=== PATIENT | male | born 1970 | race Caucasian/White ===

== ENCOUNTER 2022-05-27 12:03 | Emergency (ER) | payer BC, SELFPAY ==
[2022-05-27] VITALS (15 sets, daily range): BP systolic 111–151; BP diastolic 79–112; PULSE 12–170; RESP 13–166; TEMP 36.6; O2SAT 92–98
--- NOTE | 2022-05-27 12:24 | ED_ITS ---
HPI - General Adult General Chief complaint: Chest Pain Stated complaint: Chest Pain Time Seen by Provider: 05/27/22 12:16 History of Present Illness HPI narrative: This 51-year-old male comes in reporting generalized malaise with some chest pain. He states that his heart became rapid yesterday afternoon. He did have a triple bypass surgery 2 months ago. He arrives with tachycardia and a rate around 160 beats per minute. Related Data Previous Rx's Medication Instructions Recorded apixaban 5 mg (74 tabs) tablets in See Rx Instructions PO .COMPLEX 05/27/22 a dose pack (Eliquis DVT-PE Treat #74 ea 30D Start) Allergies Allergy/AdvReac Type Severity Reaction Status Date / Time No Known Drug Allergies Allergy Verified 05/27/22 12:23 Review of Systems Status of ROS: Reports: 10 or more systems reviewed and unremarkable except as noted in History and below Narrative: Constitutional: No fevers, no weight gain or loss. Eyes: No discharge. No vision changes. HENT: No congestion, no sore throat, no ear pain. Cardiovascular: Rapid heart rate with associated chest discomfort. Respiratory: No shortness of breath, no wheezes, no cough. Gastrointestinal: No abdominal pain, no vomiting, no diarrhea. Genitourinary: No dysuria, no hematuria. Musculoskeletal: Normal range of motion. Skin: No rashes, no pruritis. Neurological: No dizziness, weakness, sensory change, speech change. Endo/Heme/Allergies: No bruising or bleeding. No polydipsia. Pysch: no suicidality, no anxiety, no insomnia. All other systems reviewed and are negative. PFSH PFSH Social History Smoking Status: Never smoker Do you use any of these nicotine containing products: None Second hand tobacco smoke exposure: No How often do you have a drink containing alcohol: 2-3 times a week How many standard drinks containing alcohol do you have on a typical day: 3 or 4 How often do you have six or more drinks on one occasion: Never AUDIT-C Alcohol total score: 4 Non-prescribed substance use: denies use service: No Exam Narrative: Exam Narrative: Constitutional: Well-developed, well-nourished, no acute distress. HEENT: Normocephalic, atraumatic. Neck: Normal range of motion. Nontender. Supple. Heart: Regular. No murmurs. Tachycardia. Intact distal pulses. Lungs: Clear to auscultation. No chest discomfort. No wheezes, rhonchi, or rales. Abdomen: Normal bowel sounds. Nontender. No rebound tenderness. Genitalia: Deferred. Back: No midline tenderness. Normal range of motion. Extremities: Normal range of motion. No injury. Skin: Intact. No rash. Warm. No erythema or pallor. Neurologic: No altered sensation. No weakness. Alert and oriented. Psychiatric: No suicidality. No anxiety or depression. No insomnia. Nursing notes and vitals signs are reviewed. Const: Vital Signs, click to edit/add: Vital Signs - 24 hr 05/27/22 12:18 05/27/22 12:30 05/27/22 12:45 Temperature 98 F Pulse Rate [Apical ] 163 H 162 H 166 H Respiratory Rate 18 20 16 Blood Pressure [Ri ght Upper Arm] 140/110 H 151/104 H 112/94 H Pulse Oximetry 95 95 95 05/27/22 13:00 05/27/22 13:15 05/27/22 13:30 Temperature Pulse Rate [Apical ] 166 H 167 H 109 H Respiratory Rate 16 19 15 Blood Pressure [Ri ght Upper Arm] 119/101 H 133/93 H 111/85 Pulse Oximetry 95 95 94 05/27/22 13:45 05/27/22 14:00 05/27/22 14:15 Temperature Pulse Rate [Apical ] 165 H 166 H 169 H Respiratory Rate 13 21 15 Blood Pressure [Ri ght Upper Arm] 117/100 H 122/92 H 132/95 H Pulse Oximetry 95 92 95 05/27/22 14:30 05/27/22 14:45 05/27/22 15:00 Temperature Pulse Rate [Apical ] 170 H 164 H 12 L Respiratory Rate 20 19 166 H Blood Pressure [Ri ght Upper Arm] 129/97 H 129/98 H 122/112 H Pulse Oximetry 94 97 98 05/27/22 15:05 Temperature Pulse Rate [Apical ] 95 Respiratory Rate 18 Blood Pressure [Ri ght Upper Arm] 126/79 Pulse Oximetry 97 Course Vital Signs Vital signs: Initial Vital Signs Temperature 98 F 05/27/22 12:18 Temperature Source Oral 05/27/22 12:18 Pulse Rate 163 H 05/27/22 12:18 Pulse Rhythm 05/27/22 12:18 Respiratory Rate 18 05/27/22 12:18 Blood Pressure 140/110 H 05/27/22 12:18 Blood Pressure Mean 120 05/27/22 12:18 Blood Pressure Position Sitting 05/27/22 12:18 Pulse Oximetry 95 05/27/22 12:18 Oxygen Delivery Method 05/27/22 12:18 Vital Signs Temperature 98 F 05/27/22 12:18 Pulse Rate 163 H 05/27/22 12:18 Respiratory Rate 18 05/27/22 12:18 Blood Pressure 140/110 H 05/27/22 12:18 Pulse Oximetry 95 05/27/22 12:18 Temperature 98 F 05/27/22 12:18 Pulse Rate 95 05/27/22 15:05 Respiratory Rate 18 05/27/22 15:05 Blood Pressure 126/79 05/27/22 15:05 Pulse Oximetry 97 05/27/22 15:05 Medical Decision Making MDM Narrative Medical decision making narrative: This patient comes in with heart rate around 160 beats per minute. It is unclear from the monitor and EKG whether this is super ventricular tachycardia or atrial fibrillation with rapid ventricular response. An IV was established where the patient received 6 mg of adenosine. A loom repairer did show that this medicine did reach is Heart and have an affect to slow his heart but he immediately resumed back into tachycardia at the medicine cleared. He received 20 mg of diltiazem then which brought his heart rate down into the 110s. He states that this helped him feel better. Before long his heart was again going around 160 beats per minute. This is an atrial flutter with rapid ventricular response. Lab results returned with normal troponin, electrolytes, and magnesium levels. He did not have any food today and had a cup of coffee about 5 hours prior to arrival. He is a candidate for cardioversion. Anesthesia was contacted and was able to come and help with sedation. After acquiring informed consent the patient received 120 mg of propofol. This provided adequate sedation for cardioversion. Synchronized cardioversion was successfully completed using 1 dose of 150 joules of energy. He returned to normal sinus rhythm and rate. The patient received a dose of Eliquis 10 mg. A prescription for a starter pack is provided. Patient is instructed to continue this medication through the course of the next month and follow-up with the primary physician. Lab Data Labs: Lab Results 05/27/22 05/27/22 05/27/22 Range/Units 12:30 12:31 12:31 WBC 13.11 H (4.50-11.00) K/uL RBC 4.99 (4.30-5.90) m/uL Hgb 13.2 L (13.5-17.5) gm/dL Hct 40.7 (37.0-53.0) % MCV 82 (80-100) fL MCH 27 (26-34) pg MCHC 32 (32-36) gm/dL RDW Coeff of Segundo 13.5 (11.5-15.5) % Plt Count 291 (140-440) K/uL Neut % (Auto) 77.3 H (42.0-72.0) % Lymph % (Auto) 9.8 L (20-44) % [facility] % (Auto) 11.9 H (0.0-11.0) % Eos % (Auto) 0.2 (0.0-7.0) % Baso % (Auto) 0.4 (0.0-3.0) % Neut # (Auto) 10.10 H (1.7-7.0) K/uL Lymph # (Auto) 1.30 (0.90-2.90) K/uL [facility] # (Auto) 1.60 H (0.00-0.90) K/UL Eos # (Auto) 0.00 (0.00-0.50) K/uL Baso # (Auto) 0.10 (0.00-0.30) K/uL Abs Immat Gran (auto) 0.05 (0.00-0.30) K/uL Sodium 134 L (135-149) mmol/L Potassium 3.9 (3.6-5.1) mmol/L Chloride 101 (96-114) mmol/L Carbon Dioxide 26 (20-32) mmol/L BUN 17 (7-30) mg/dL Creatinine 1.2 (0.5-1.5) mg/dL Estimated GFR 73 ml/min Glucose 132 H (60-115) mg/dL Calcium 9.6 (8.4-10.6) mg/dL Magnesium 1.6 (1.5-2.6) mg/dL POC Troponin I 0.01 (0.01-0.04) ng/ml ECG Data Attestation: I personally reviewed and interpreted this ECG as follows: Interpretation: Supraventricular tachycardia, rate 162 beats per minute. There are no specific ST or T-wave abnormalities. Repeat EKG after cardioversion shows normal sinus rhythm, rate around 80 beats per minute, and no ST or T-wave abnormalities. Discharge Plan Discharge Clinical Impression: Atrial flutter with rapid ventricular response Patient Disposition: Home, Self-Care Condition: Improved Instructions: Atrial Flutter (ED) Additional Instructions: Take Eliquis as prescribed. Follow up with primary physician or events administrative assistant in the next 1-2 weeks. Return if recurrent symptoms happen. Prescriptions: New Eliquis DVT-PE Treat 30D Start 5 mg (74 tabs) tablets,dose pack See Rx Instructions PO .COMPLEX Qty: 74 0RF Rx Instructions: orally per package directions Follow Up/Referrals: Lewis Deluna MD [Primary Care Provider] - Stand Alone Forms: [employer] Info Instructions
[2022-05-27 12:36] LABS: Basophils Percent Auto 0.4 % (0.0-3.0); Eosinophils Percent Auto 0.2 % (0.0-7.0); Hematocrit 40.7 % (37.0-53.0); Hemoglobin* 13.2 gm/dL (13.5-17.5); Immature Granulocytes Abs Auto 0.05 K/uL (0.00-0.30); Lymphocytes Percent Auto 9.8 % (20-44); Mean Corpuscular HGB Conc 32 gm/dL (32-36); Mean Corpuscular Hemoglobin 27 pg (26-34); Mean Corpuscular Volume 82 fL (80-100); Monocytes Percent Auto 11.9 % (0.0-11.0); Neutrophils Percent Auto 77.3 % (42.0-72.0); Platelet Count* 291 K/uL (140-440); RDW Coefficient of Variation % 13.5 % (11.5-15.5); Red Blood Count 4.99 m/uL (4.30-5.90); White Blood Count* 13.11 K/uL (4.50-11.00)
[2022-05-27 12:54] LABS: Chloride* 101 mmol/L (96-114); Potassium* 3.9 mmol/L (3.6-5.1); Slide Review Reflex No; Sodium* 134 mmol/L (135-149)
[2022-05-27 12:57] LABS: Blood Urea Nitrogen* 17 mg/dL (7-30); Carbon Dioxide* 26 mmol/L (20-32); Creatinine* 1.2 mg/dL (0.5-1.5); Estimated Glomerular Filt Rate 73 ml/min
[2022-05-27 12:58] LABS: Calcium* 9.6 mg/dL (8.4-10.6); Glucose* 132 mg/dL (60-115); Magnesium* 1.6 mg/dL (1.5-2.6)
[2022-05-27] MEDS: ADENOSINE 6 MG/2ML INJ IVP (13:00)
[2022-05-27 13:13] LABS: Troponin, Point-of-Care* 0.01 ng/ml (0.01-0.04)
[2022-05-27] MEDS: dilTIAZem 5 MG/ML inj 20 MG IVP (13:20)
--- NOTE | 2022-05-27 14:10 | ED.NURSE ---
Updated house sup that pt will be cardioverted. Last PO was a cup of coffee at 1000. Has not eaten anything today.
--- NOTE | 2022-05-27 15:18 | W.ANESCHARGE ---
Anesthesia Charges Start Date/Time Anesthesia Start Date: 05/27/22 Anesthesia Start Time: 14:46 Stop Date/Time Anesthesia Stop Date: 05/27/22 Anesthesia Stop Time: 15:10 Summary Emergency: Yes
[2022-05-27] MEDS: APIXABAN 5 MG TABLET 10 MG PO (15:35)
--- NOTE | 2022-05-27 15:38 | ED.NURSE ---
Pt given water. Feels he is back to baseline and ready to D/C. No n/v, dizziness, or SOB. at bedside.
== END 2022-05-27 16:34 | disposition home or self-care (01) ==
PROVIDERS: Emergency Provider Emergency Medicine Emergency Medical Services; PCP Surgery
DX: I48.20 Chronic atrial fibrillation, unspecified (principal)
CPT/HCPCS: 36415; 410; 80048; 83735; 84443; 84484; 85025; 92960; 93005; 99140; 99285; 99291; A9270; J0153; J2704